=== PATIENT | female | born 1940 | race Caucasian/White ===

== ENCOUNTER → 2021-04-26 | Day surgery (SDC) | payer BC ==
[~2021-04-26] VITALS: Ht 152.4 cm; Wt 65.8 kg
[~2021-04-26] MED LIST: DEXAMETHASONE 4MG/ML 1ML VIAL ONE; DILT300C52 PO; FENTANYL CITRATE/PF 50MCG/ML 2ML VIAL ONE; HYDR100T26 PO; HYDROMORPHONE HCL/PF 2MG/ML CPJ IV PRN; IRBE300T17 PO; ISOS40TA17 PO; LABETALOL 5MG/ML SYR 20 MG/4 ML SYRINGE IV PRN; LACTATED RINGERS 1,000 ML IV SCH; MEPERIDINE HCL/PF 25MG/ML CPJ IV PRN; METO-411 PO; MIDAZOLAM HCL 2 MG/2 ML VIAL ONE; ONDANSETRON HCL 4MG/2ML INJ IV PRN; ONDANSETRON HCL 4MG/2ML INJ ONE; PROPOFOL 200MG/20ML VIAL IV ONE
[2021-04-26 14:07] VITALS: BP 143/73
== END | disposition home or self-care (01) ==
LOC: OR 09:20
PROVIDERS: ATTEND Specialist
DX: N13.2 Hydronephrosis with renal and ureteral calculous obstruction (principal); I10 Essential (primary) hypertension; M81.0 Age-related osteoporosis without current pathological fracture; Z79.899 Other long term (current) drug therapy; Z98.890 Other specified postprocedural states; Z20.822 Contact with and (suspected) exposure to COVID-19
CPT/HCPCS: 52356; 74018; 87426; 88300; C2617; J1100; J2175; J2250; J2405; J2704; J3010; 76000